=== PATIENT | male | born 1950 | race Caucasian/White ===

== ENCOUNTER → 2019-08-20 10:50 | Outpatient (CLI) | payer MEDICARE ==
[2014-07-24 13:18] VITALS: BMI 39.8
[~2019-08-20 10:50] MED LIST: BAYER CHEWABLE81 MG PO; BETAPACE 80 MG80 MG PO; GLUCOPHAGE XR750 MG PO; GLUCOTROL 5 MG T5 MG PO; HYDROCODON-ACE1 EAC7 PO; HYZAAR 50-12.51 TAB PO; LIPITOR10 MG PO
== END | disposition home or self-care (01) ==
LOC: D.HCCECHO 10:50
PROVIDERS: ATTEND Internal Medicine Cardiovascular Disease
DX: R06.02 Shortness of breath (principal); I48.0 Paroxysmal atrial fibrillation

== ENCOUNTER 2019-09-05 11:04 | Outpatient (CLI) | payer MEDICARE ==
[~2019-09-05] VITALS: Ht 182.9 cm; Wt 129.5 kg
--- NOTE | ~2019-09-05 | HEMODYNAMI ---
PATIENT:EDUARDO IGLESIAS MEDICAL RECORD: [id number] : 48 LOCATION:[facility] ADMISSION DATE: 09/05/19 Generatedon:09/05/201914:04 Patient name: EDUARDO IGLESIAS Patient #: [id number] : 1950 Date of study: 09/05/2019 Page: Of Hemodynamic Procedure Report Patient Data Patient Demographics Procedure consent was obtained First Name: EDUARDO Gender: Male Last Name: HARRIS : 1950 Middle Initial: L Age: 69 year(s) Patient #: [id number] Race: SSN: [id number] Additional ID: [id number] Contact details [address]: [address] [place] [address] [address] State: [place] City: [place] Zip code: [address] Admission Admission Data Admission Date: 09/05/2019 Admission Time: 11:04 Lab Results Lab Result Date: 09/05/2019 Lab Result Time: 0:00 Biochemistry Name Units Result Min Max BUN mg/dl 17 --(---*)-- 7 18 Creatinine mg/dl 1.2 --(---*)-- 0.6 1.3 eGFR ml/min 64.47257 *-(----)-- 90 120 NONAFRICAN CBC Name Units Result Min Max Hemoglobin g/dl 13.9 --(*---)-- 13.5 17.5 Procedure Procedure Types Cath Procedure Diagnostic Procedure LHC LHC w/Coronaries Sedation Charges Moderate Sedation up to 15 minutes Procedure Description Procedure Date Procedure Date: 09/05/2019 Procedure Start Time: 13:46 Procedure End Time: 14:02 Procedure Staff Name Function Syed Broderick MD Performing Physician Sandra Heredia RT Monitor Mirela Lawson RT Scrub Lor Dobbs RN Nurse Isaias Santoro RT Commercial Escrow Officer Procedure Data Cath Procedure Fluoroscopy Diagnostic fluoroscopy Total fluoroscopy Time: 3.3 time: 3.3 min min Diagnostic fluoroscopy Total fluoroscopy dose: dose: 1059 mGy 1059 mGy Contrast Material Contrast Material Type Amount (ml) Isovue 300 72 Entry Location Entry Primary Successful Side Size Upsize Upsize Entry Closure Craig ccessful Closure Location (Fr) 1 (Fr) 2 (Fr) Remarks Device Remarks Radial Right 6 Fr Mechanical artery Short Compression Estimated blood loss: 5 ml Diagnostic catheters Device Type Used For End Catheter Placement DIAGNOSTIC Jaron 110cm Multi-vessel 5Fr catheter ([id number]) Angiography DIAGNOSTIC Lynn 5Fr Multi-vessel catheter ([id number]) Angiography Procedure Complications No complications Procedure Medications Medication Administration Route Dosage 0.9% NaCl I.V. 100 ml/hr Oxygen etCO2 Nasal cannula 2 l/min Lidocaine 2% added to field 20 Heparin Flush Bag added to field 2 bags (1000units/500ml NS) Radial Cocktail added to field 1 syringe (Verapamil 2mg/Nitro 400mcg/Heparin 1500units) Versed I.V. 2 mg Fentanyl I.V. 50 mcg Fentanyl I.V. 50 mcg Hemodynamics Rest HGB: 13.9 (g/dl) Heart Rate: 60 (bpm) Pressure Samples Time Site Value (mmHg) Purpose Heart Use Rate(bpm) 13:49 LV 157/3,15 Snapshot 55 13:50 AO 134/59(88) Pullback 76 13:50 LV 156/-3,7 Pullback 76 Gradients Valve Time Site 1 Site 2 Mean SEP/DFP Peak To Heart Use (mmHg) (sec/min) Peak Rate (mmHg) (bpm) Aortic 13:50 LV AO 13 19 22 76 156/-3,7 134/59(88) Calculations Valve P-P Mean Valve Index Valve Source Name Gradient Area Flow (cm2) Aortic 22 13 22 13 Snapshots Pre Cath Intra NCS Post Cath Vital Signs Time Heart Resp SPO2 etCO2 NIBP (mmHg) Rhythm Pain Sedation Rate (ipm) (%) (mmHg) Status Level (bpm) 13:32:55 99 11 98 32.4 Measuring A-Flutter 0 (11) 10(A) , No pain 13:33:36 54 15 98 31.5 182/102(148) A-Flutter 0 (11) 10(A) , No pain 13:38:11 72 21 99 12 168/81(130) A-Flutter 0 (11) 10(A) , No pain 13:42:39 68 17 97 27.1 156/81(130) A-Flutter 0 (11) 10(A) , No pain 13:47:01 71 19 98 10.5 159/87(141) A-Flutter 0 (11) 10(A) , No pain 13:51:23 78 17 97 17.3 137/71(111) A-Flutter 0 (11) 10(A) , No pain 13:55:44 74 15 97 19.6 153/80(123) A-Flutter 0 (11) 10(A) , No pain 14:00:14 81 13 98 35.4 163/86(122) A-Flutter 0 (11) 10(A) , No pain Medications Time Medication Route Dose Verified Delivered Reason Notes E ffectiveness by by 13:31:13 0.9% NaCl I.V. 100 Syed Lor used for ml/hr Davie Dobbs scrap iron loader 13:31:21 Oxygen etCO2 2 l/min Syed Lor used for Nasal Davie Dobbs procedure cannula RN 13:31:26 Lidocaine 2% added 20ml Syed Syed for local to vial Davie Broderick MD anesthetic field 13:31:30 Heparin Flush added 2 bags Syed Syed used for Bag to Davie Broderick MD procedure (1000units/500ml field NS) 13:31:34 Radial Cocktail added 1 Syed Syed used for (Verapamil to syringe Davie Broderick MD procedure 2mg/Nitro field 400mcg/Heparin 1500units) 13:38:58 Versed I.V. 2 mg Syed Lor for Davie Dobbs sedation RN 13:39:03 Fentanyl I.V. 50 mcg Syed Lor for Davie Dobbs sedation RN 13:45:59 Fentanyl I.V. 50 mcg Syed Lor for Davie Dobbs sedation hand umbrella tipper Log Time Note 13:19:30 Informed consent obtained and on chart 13:19:36 Diagnostic Cath Status : Elective 13:20:05 Procedure Status Elective Heart Cath (OP). 13:20:08 Isaias Santoro RT(R) sent for patient. Start room use. 13:20:09 Time tracking: Regular hours (M-F 7:00 - 5:00) 13:20:13 Plan of Care:Hemodynamics will remain stable., Cardiac rhythm will remain stable., Comfort level will be maintained., Respiratory function will remain adequate., Patient/ family verbilizes understanding of procedure., Procedure tolerated without complication., Recovers from procedure without complications.. ::37 Lab Result : Creatinine 1.2 mg/dl ::37 Lab Result : BUN 17 mg/dl 13::37 Lab Result : eGFR NONAFRICAN 64.55390 ml/min ::37 Lab Result : Hemoglobin 13.9 g/dl 13::57 Patient received from Pre/Post Procedure Room to [facility] 2 Alert and oriented. Tansferred to table in Supine position. 13::58 Warm blankets applied, and simone hugger turned on for patient comfort. 13::58 Correct patient and procedure confirmed by team. 13:25:59 ECG and BP/O2 sat monitors applied to patient. 13:31:05 Vital chart was started 13:31:13 0.9% NaCl 100 ml/hr I.V. was administered by Lor Dobbs RN; used for procedure; Verbal order read back and verified. 13:31:21 Oxygen 2 l/min etCO2 Nasal cannula was administered by Lor Dobbs RN; used for procedure; Verbal order read back and verified. 13:31:26 Lidocaine 2% 20ml vial added to field was administered by Syed Broderick MD; for local anesthetic; Verbal order read back and verified. 13:31:30 Heparin Flush Bag (1000units/500ml NS) 2 bags added to field was administered by Syed Broderick MD; used for procedure; Verbal order read back and verified. 13:31:34 Radial Cocktail (Verapamil 2mg/Nitro 400mcg/Heparin 1500units) 1 syringe added to field was administered by Syed Broderick MD; used for procedure; Verbal order read back and verified. 13:32:25 Baseline sample Acquired. 13:33:01 Rhythm: sinus rhythm 13:33:03 Full Disclosure recording started 13:33:07 H&P Date Dictated: 09/05/2019 Within 30 days and on chart., H&P Addendum completed by physician on day of procedure. (MUST COMPLETE FOR ALL OUTPATIENTS). 13:33:09 Pre-procedure instructions explained to patient. 13:33:09 Pre-op teaching completed and patient verbalized understanding. 13:33:14 Family in patients room. 13:33:15 Patient NPO since Midnight. 13:33:17 Is the patient allergic to Iodine/contrast media? No. 13:33:19 Was the patient premedicated? Yes 13:33:20 Is patient on blood thinner?No 13:33:21 Patient diabetic? Yes. 13:33:22 If diabetic: On Metformin? Yes 13:33:25 If on Metformin: Last Dose? 09/03/2019 13:33:28 Previous problem with sedation/anesthesia? No ? 13:33:29 Snore? Yes 13:33:30 Sleep apnea? Yes 13:33:31 Deviated septum? No 13:33:32 Opens mouth fully? Yes 13:33:39 Sticks out tongue? 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 No ? 13:34:09 Pre procedure: right dorsailis pedis pulse 2+ Normal; easily identifiable; not easily obliterated 13:34:11 Pre procedure: left dorsailis pedis pulse 2+ Normal; easily identifiable; not easily obliterated 13:34:13 Patient pain scale 0/10 ?. 13:34:19 IV patent on arrival in left forearm with 0.9% NaCl at [facility]. 13:34:21 Lab results completed and on chart. 13:34:25 Stress Test: yes; abnormal ? 13:34:29 Risk of Mortality: 0.1 13:34:32 Risk of blood transfusion: 0.1 13:34:36 Risk of MERVAT: 0.3 13:34:41 Right Radial & Right Groin area was prepped with chlora-prep and draped in sterile fashion 13:34:42 Alarms reviewed by R. N. 13:34:42 Sharps counted by scrub and verified by R.N. 13:34:43 Physician arrived 13:34:43 --------ALL STOP TIME OUT------ 13:34:44 Final Timeout: patient, procedure, and site verified with staff and physician. All members of the team are in agreement. 13:34:46 Right Radial & Right Groin site verified by team. 13:34:49 Fire Safety Assessment: A--An alcohol-based skin anteseptic being used preoperatively., C--Open oxygen or nitrous oxide is being used., D--An ESU, laser, or fiber-optic light is being used. 13:34:53 Physical assessment completed. ASA score P 2 - A patient with mild systemic disease as per Syed Broderick MD. 13:35:08 2) 60-89 Mildly reduced kidney function, and other findings (as for stage 1) point to kidney disease. 13:35:29 Maximum allowable contrast dose (3.7 X eGFR X 0.75)177 ml. 13:35:33 Sedation plan: IV Moderate Sedation Medication:Versed, Fentanyl 13:35:38 Use device set Radial Dx or PCI 13:35:42 ACIST Syringe (90463) opened to sterile field. 13:35:42 Medline Cath Pack ([id number]) opened to sterile field. 13:35:43 Bag Decanter (2002S) opened to sterile field. 13:35:43 ACIST Hand Control (46469) opened to sterile field. 13:35:44 ACIST Manifold (73344) opened to sterile field. 13:35:44 Tegaderm 4 x 4 (1626W) opened to sterile field. 13:35:45 MBrace Wrist Support ([id number]) opened to sterile field. 13:35:46 NEEDLE Cook 21G 4cm Radial (L84961) opened to sterile field. 13:35:47 SHEATH 6FR RAIN (2173377) opened to sterile field. 13:35:50 EMERALD Guide Wire (278-543) opened to sterile field. 13:38:58 Versed 2 mg I.V. was administered by Lor Dobbs RN; for sedation; Verbal order read back and verified. 13:39:03 Fentanyl 50 mcg I.V. was administered by Lor Dobbs RN; for sedation; Verbal order read back and verified. 13:42:56 Zero performed for pressure channel P1 13:45:59 Fentanyl 50 mcg I.V. was administered by Lor Dobbs RN; for sedation; Verbal order read back and verified. 13:46:06 Procedure started. 13:46:13 Local anesthetic to right radial artery with Lidocaine 2% by Syed Broderick MD.INITIAL ACCESS ONLY 13:47:37 A 6 Fr Short sheath was inserted into the Right Radial artery 13:47:50 A DIAGNOSTIC Jaron 110cm 5Fr catheter (503623) was advanced over the wire and used for Multi-vessel Angiography. 13:49:12 Zero performed for pressure channel P1 13:49:34 LV hemodynamics recorded. 13:49:35 LV gram done using ENCARNACION 13:49:37 Injector settings: Ml/sec: 5, Volume: 15, 13:49:54 EF : 60 % 13:51:37 RCA angiography performed. 13:52:19 Injector settings: Ml/sec: 3, Volume: 6, 13:52:26 Catheter removed. 13:54:23 A DIAGNOSTIC Lynn 5Fr catheter (960287) was advanced over the wire and used for Multi-vessel Angiography. 13:55:30 LCA angiography performed. 13:55:33 Injector settings: Ml/sec: 3, Volume: 6, 13:58:10 ACCDominant side:Right 13:58:10 Catheter removed. 13:58:56 Sheath removed intact; hemostasis achieved with Mechanical Compression to the Right Radial artery. 13:59:07 Procedure ended.(Physican Out) 13:59:19 Fluoroscopy time 03.30 minutes. 13:59:23 Fluoroscopy dose: 1059 mGy 13:59:23 Flurop Dose total: 1059 13:59:31 Dose Area Product 09471 mGy/cm. 13:59:39 Contrast amount:Isovue 300 72ml. 14:00:10 Maximum allowable dose exceeded? No. 14:00:11 Sharps counted by scrub and verified by R.N. 14:00:15 Insertion/operative site no bleeding no hematoma. 14:00:31 Post right radial artery:stable 14:00:32 Post Procedure Pulses reassessed and unchanged 14:00:35 Post procedure rhythm: unchanged. 14:00:37 Estimated blood loss: 5 ml 14:00:38 Post procedure instruction explained to patient.Patient verbalizes understanding. 14:00:39 Patient needs reinforcement of post procedure teaching. 14:00:57 Procedure type changed to Cath procedure, Diagnostic procedure, LHC, [facility] w/Coronaries, Sedation Charges, Moderate Sedation up to 15 minutes 14:00:58 Procedure and supply charges have been captured, reviewed, submitted and are correct. 14:01:39 Procedure Complication : No complications 14:01:41 Vital chart was stopped 14:01:43 [facility] Findings: MVD- PCI performed (see procedure note) 14:01:45 Operative report dictated upon procedure completion. 14:01:45 See physician's report for complete and final results. 14:01:48 Report given to Pre/Post Procedure Room. 14:01:52 TR BAND Large ([id number]) opened to sterile field. 14:02:23 Patient transfered to Pre/Post Procedure Room with Stretcher. 14:02:25 Procedure ended. 14:02:25 Full Disclosure recording stopped 14:02:31 End room use (Document Last) 14:03:31 End room use (Document Last) 14:03:54 End room use (Document Last) Device Usage Item Name Manufacture Quantity Catalog Hospital Part Current Minima l Lot# / Number Charge Number Stock Stock Serial# Code ACIST Acist 1 47234 888053 275592 486110 20 Syringe Medical (20846) Systems Inc Medline Medline 1 [id number] 131298 61043 486467 5 Cath Pack ([id number]) Bag Microtek 1 138036 82544 594718 5 Decanter Medical Inc. () ACIST Hand Acist 1 16116 740144 975463 068079 5 Control Medical (63653) Systems Inc ACIST Acist 1 45710 263614 973961 979252 5 Manifold Medical (29281) Systems Inc Tegaderm 4 3M 1 1626W 782291 162637 481147 5 x 4 (1626W) MBrace Advanced 1 140-0250-00 984842 79985 827962 5 Wrist Vascular Support Dynamics ([id number]) NEEDLE Cook Cook Medical 1 [id number] 733092 910917 463396 5 21G 4cm Radial (G89478) SHEATH 6FR Cardinal 1 0388745 030107 5046171 889486 5 [facility] ([id number]) EMERALD Cardinal 1 502-455 442748 139283 749807 5 Guide Wire Health (560-918) DIAGNOSTIC Terumo 1 40-5023 822566 573704 461054 5 Jaron 110cm 5Fr catheter (358541) DIAGNOSTIC Terumo 1 40-5022 180199 692230 999973 5 Lynn 5Fr catheter (483469) TR BAND Terumo 1 [id number] 516139 834131 770103 40 Large ([id number]) Signature Audit [place] Stage Time Signature Unsigned Intra-Procedure 09/05/2019 Sandra Heredia 2:03:32 PM RT(R) Intra-Procedure 09/05/2019 Lor Dobbs 2:03:54 PM RN Intra-Procedure 09/05/2019 Syed Broderick MD 2:04:22 PM Signatures Performing Physician : Signature : Syde Broderick MD Date : Time : Monitor : Sandra Heredia RT Signature : Date : Time : Nurse : Lor Dobbs RN Signature : Date : Time : [facility] [address] [place] [address]
[~2019-09-05 11:04] MED LIST changes: -BETAPACE 80 MG80 MG PO; -GLUCOTROL 5 MG T5 MG PO; -HYDROCODON-ACE1 EAC7 PO
[2019-09-05] MEDS ORDERED: BETAPACE 80 MG80 MG PO (11:45)
[2019-09-05] MEDS ORDERED: GLUCOTROL 5 MG T5 MG PO (11:45)
[2019-09-05] MEDS ORDERED: HYDROCODON-ACE1 EAC7 PO (11:46)
[2019-09-05 11:59] VITALS: BP 182/67; Ht 182.9 cm; Wt 129.5 kg
[2019-09-05 12:37] LABS: ANION GAP 18.2 mmol/L (8-16); CARBON DIOXIDE 20.9 mmol/L (21.0-32.0); CREATININE - SERUM 1.2 mg/dL (0.6-1.3); POTASSIUM - SERUM 4.1 mmol/L (3.5-5.1)
[2019-09-05 12:56] LABS: CHOL - HDL RATIO 2.1 ratio (2.3-4.9); LDL-HDL RATIO 0.9 ratio (1.5-3.5)
[2019-09-05 13:15] LABS: BASOPHILS 0.3 % (0-2); EOSINOPHILS 1.3 % (0-7); HEMATOCRIT 40.7 % (42.0-54.0); HEMOGLOBIN 13.9 g/dL (13.5-17.5); IMMATURE GRANULOCYTES 0.4 % (0-5); LYMPHOCYTES 25.6 % (15-50); MCHC 34.2 g/dL (31.0-37.0); MCV 96.7 fL (80.0-100.0); MEAN PLATELET VOLUME 9.4 fL (7.4-10.4); MONOCYTES 7.4 % (2-11); PLATELET COUNT 140 10x3/uL (130-400); RBC 4.21 10x6/uL (4.20-6.10); RDW 12.7 % (11.5-14.5); WBC 6.7 10x3/uL (4.8-10.8)
--- NOTE | 2019-09-05 14:15 | NUR ---
PATIENT ARRIVED TO ROOM 5, PLACED ON CM. VSS. RIGHT TR BAND IN PLACE, NO S/S OF BLEEDING OR HEMATOMA.
--- NOTE | 2019-09-05 14:30 | NUR ---
PHYSICIAN AT BEDSIDE. 12-LEAD EKG PERFORMED. VSS ON ROOM AIR. RIGHT TR BAND IN PLACE, NO S/S OF BLEEDING OR HEMATOMA. NO C/O PAIN, NUMBNESS, OR TINGLING. SPOUSE PRESENT AT BEDSIDE.
--- NOTE | 2019-09-05 15:00 | NUR ---
PATIENT RESTING, VSS ON ROOM AIR. RIGHT TR BAND IN PLACE, NO S/S OF BLEEDING OR HEMATOMA. NO C/O PAIN, NUMBNESS, OR TINGLING. NO N/V. PRESENT AT BEDSIDE.
--- NOTE | 2019-09-05 15:00 | NUR ---
3CC OF AIR REMOVED PER PROTOCOL, NO S/S OF BLEEDING OR HEMTOMA. NO C/O PAIN, NUMBNESS, OR TINGLING.
--- NOTE | 2019-09-05 15:30 | NUR ---
REMAINING AIR REMOVED FROM TR BAND, NO S/S OF BLEEDING OR HEMATOMA. NO C/O PAIN,NUMBNESS, OR TINGLING. VSS ON ROOM AIR. IV REMOVED. PATIENT DISCONNECTED FROM MONITORS TO GET DRESSED. SPOUSE AT BEDSIDE TO ASSIST.
--- NOTE | 2019-09-05 15:40 | NUR ---
DRESSING AT RIGHT RADIAL SITE IS CDI, NO S/S OF BLEEDING OR HEMATOMA. NO C/O PAIN, NUMBNESS, OR TINGLING. PATIENT VOIDED WITHOUT DIFFICULTY. TOLERATING PO FLUIDS, NO N/V. WRITTEN AND VERBAL DISCHARGE INSTRUCTIONS GIVEN TO PATIENT AND SPOUSE, BOTH VOICE UNDERSTANDING.
--- NOTE | 2019-09-05 15:50 | NUR ---
PATIENT REFUSED WHEELCHAIR, PATIENT ACCOMPANIED TO CAR WITH SPOUSE DRIVING, ALL BELONGINGS WITH PATIENT.
== END 2019-09-05 15:50 ==
LOC: D.CATH 11:04
PROVIDERS: ATTEND Internal Medicine Cardiovascular Disease
DX: I20.9 Angina pectoris, unspecified (principal); R94.30 Abnormal result of cardiovascular function study, unspecified